=== PATIENT | female | born 1945 | race Caucasian/White ===

== ENCOUNTER 2018-07-04 18:45 | Emergency (ER) | payer SELFPAY ==
[~2018-07-04] VITALS: Ht 165.1 cm; Wt 84.4 kg
--- NOTE | 2018-07-04 20:13 | Diagnostic Imaging Report ---
Exam: 1 view of the abdomen, supine Indication: Constipation, chronic, right-sided abdominal pain Comparison: None Findings: Significant amount of retained stool predominantly of the rectosigmoid colon. No evidence of bowel obstruction. S-shaped curvature of the thoracolumbar spine. The bones are demineralized. No consolidations in the lung bases. Impression: Significant amount of retained stool predominantly of the rectosigmoid colon, likely fecal impaction. Signed by: Dr. Matilda Billingsley M.D. on 07/04/2018 8:09 PM
--- NOTE | 2018-07-04 22:49 | Diagnostic Imaging Report ---
EXAM: CT ABDOMEN AND PELVIS WITH IV CONTRAST INDICATION: Constipation for one week, right-sided abdominal pain COMPARISON: [facility] July 04, 2018 TECHNIQUE: The abdomen and pelvis were scanned using a multidetector helical scanner. Coronal and sagittal reformations were obtained. Dose modulation, iterative reconstruction, and/or weight based adjustment of the mA/kV was utilized to reduce the radiation dose to as low as reasonably achievable. Routine protocol performed. IV Contrast: 100 cc Isovue-300 Oral Contrast: None CTDIvol has been reviewed. It is below the limits set by the Radiation Protocol Committee (RPC). FINDINGS: LOWER THORAX: No consolidations LIVER: No masses BILIARY: Normal gallbladder. No ductal dilation. SPLEEN: No masses PANCREAS: No masses ADRENALS: There is a 3.7 x 2.7 heterogeneous left adrenal gland mass. KIDNEYS: No enhancing masses. Moderate right and mild left hydronephrosis. GI TRACT: Severe distention of the rectum with stool measuring up to 11 cm in transverse diameter. Retained stool throughout the colon. No bowel obstruction. The appendix cannot be identified. No evidence of appendicitis. VESSELS: Advanced atherosclerotic changes of the abdominal aorta and branches. There is a fusiform infrarenal abdominal aortic aneurysm measuring up to 4.7 cm in maximum diameter with moderate crescentic adherent thrombus. PERITONEUM/RETROPERITONEUM: No free air or fluid LYMPH NODES: No lymphadenopathy REPRODUCTIVE ORGANS: The uterus and ovaries are not visualized. BLADDER: The bladder is compressed anteriorly secondary to the distended rectum. SOFT TISSUES: Normal BONES: No suspicious bone lesions. IMPRESSION: 1. Marked distention of the rectum with stool consistent with fecal impaction. No bowel obstruction. 2. Moderate right and mild left hydronephrosis, likely secondary to distal ureteral mass effect from distended rectum. 3. There is an infrarenal abdominal aortic aneurysm measuring up to 4.7 cm. Unless patient has been instructed otherwise, for this size of an aneurysm follow-up imaging is recommended every 6 months. 4. Indeterminate 3.2 cm heterogeneous left adrenal gland mass. If this has not already been evaluated, this can be further characterized by MR or CT with and without IV contrast, adrenal mass protocol. Signed by: Dr. Matilda Billingsley M.D. on 07/04/2018 10:46 PM
[2018-07-04 23:16] VITALS: BP 143/88
== END 2018-07-04 23:32 | disposition home or self-care (01) ==
LOC: FSED 18:45
DX: R10.9 Unspecified abdominal pain (principal); K59.00 Constipation, unspecified; K56.41 Fecal impaction
CPT/HCPCS: 74018; 74177; 80053; 81003; 85025; 99284

== ENCOUNTER 2019-02-22 20:05 | Inpatient (IN) | payer MEDICARE, OTHER ==
[~2019-02-22] VITALS: Ht 165.1 cm; Wt 85.7 kg
--- OUTSIDE RECORDS SUMMARY | 2019-02-22 20:07 | XMS REPORT ---
Author [facility] Address Unknown Phone Unavailable Care Team Providers Care [employer] Name Role Phone Chaim MARTINEZ Unavailable Unavailable Payers Payer Name Policy Type Policy Number Effective Date Expiration Date Problems This patient has no known problems. Allergies, Adverse Reactions, Alerts Allergy Name Allergy Type Status Severity Reaction(s) Onset Date Inactive Date Treating Clinician Comments cortisone DA Active VT 2018-12-15 00:00:00 strawberry DA Active VT 2018-12-15 00:00:00 cortisone DA Active VT 2017-12-08 00:00:00 strawberry DA Active VT 2017-12-08 00:00:00 CUCUMBAR DA Active 2010-08-27 00:00:00 Medications This patient has no known medications. Results Test Description Test Time Test Comments Text Results Atomic Results Result Comments GLUBED 2018-12-30 07:34:00 GLUBED (test code=GLUBED) 102 mg/dL 74-106 Performed by certified autocad operator at [facility] [id number] 07:34:00* Test Item Value Reference Range Comments GLUBED (test code=GLUBED) 84 mg/dL 74-106 Performed by certified autocad operator at [facility] [id number] 07:33:00* Test Item Value Reference Range Comments GLUBED (test code=GLUBED) 131 mg/dL 74-106 Performed by certified autocad operator at [facility] [id number] 07:33:00* Test Item Value Reference Range Comments GLUBED (test code=GLUBED) 87 mg/dL 74-106 Performed by certified autocad operator at [facility] [id number] 07:33:00* Test Item Value Reference Range Comments GLUBED (test code=GLUBED) 117 mg/dL 74-106 Performed by certified autocad operator at [facility] [id number] 07:33:00* Test Item Value Reference Range Comments GLUBED (test code=GLUBED) 84 mg/dL 74-106 Performed by certified autocad operator at [facility] [id number] 07:32:00* Test Item Value Reference Range Comments GLUBED (test code=GLUBED) 158 mg/dL 74-106 Performed by certified autocad operator at [facility] [id number] 07:32:00* Test Item Value Reference Range Comments GLUBED (test code=GLUBED) 107 mg/dL 74-106 Performed by certified autocad operator at [facility] [id number] 07:32:00* Test Item Value Reference Range Comments GLUBED (test code=GLUBED) 156 mg/dL 74-106 Performed by certified autocad operator at [facility] [id number] 07:31:00* Test Item Value Reference Range Comments GLUBED (test code=GLUBED) 107 mg/dL 74-106 Performed by certified autocad operator at [facility] [id number] 07:31:00* Test Item Value Reference Range Comments GLUBED (test code=GLUBED) 81 mg/dL 74-106 Performed by certified autocad operator at [facility] [id number] 07:31:00* Test Item Value Reference Range Comments GLUBED (test code=GLUBED) 130 mg/dL 74-106 Performed by certified autocad operator at [facility] [id number] 07:31:00* Test Item Value Reference Range Comments GLUBED (test code=GLUBED) 128 mg/dL 74-106 [facility] [id number] 07:30:00* Test Item Value Reference Range Comments GLUBED (test code=GLUBED) 79 mg/dL 74-106 [facility] [id number] 09:35:00* Test Item Value Reference Range Comments GLUBED (test code=GLUBED) 305 mg/dL 74-106 Performed by certified autocad operator at [facility] [id number] 09:34:00* Test Item Value Reference Range Comments GLUBED (test code=GLUBED) 78 mg/dL 74-106 Performed by certified autocad operator at [facility] [id number] 09:34:00* Test Item Value Reference Range Comments GLUBED (test code=GLUBED) 147 mg/dL 74-106 Performed by certified autocad operator at [facility] [id number] 09:34:00* Test Item Value Reference Range Comments GLUBED (test code=GLUBED) 74 mg/dL 74-106 Performed by certified autocad operator at [facility] BASIC METABOLIC [id number] 06:36:00* Test Item Value Reference Range Comments SODIUM (test code=NA) 143 mmol/L 136-145 POTASSIUM (test code=K) 3.9 mmol/L 3.5-5.1 CHLORIDE (test code=CL) 112.0 mmol/L 98-107 CARBON DIOXIDE (test code=CO2) 23.0 mmol/L 21-32 ANION GAP (test code=GAP) 11.9 10-20 GLUCOSE (test code=GLU) 95 mg/dL 74-106 BLOOD UREA NITROGEN (test code=BUN) 14 mg/dL 7-18 GLOMERULAR FILTRATION RATE (test code=GFR) > 60 mL/min >=60 Estimated GFR by using Modified MDRD formula.Chronic kidney disease is defined as either kidney damageor GFR <60 mL/min/1.73 m2 for >3 months. CREATININE (test code=CREAT) 0.50 mg/dL 0.55-1.02 Note change in reference range due to change in reagent. BUN/CREATININE RATIO (test code=BUN/CREA) 27.8 10-20 CALCIUM (test code=CA) 8.3 mg/dL 8.5-10.1 BASIC METABOLIC [id number] 06:32:00* Test Item Value Reference Range Comments SODIUM (test code=NA) 143 mmol/L 136-145 POTASSIUM (test code=K) 3.9 mmol/L 3.5-5.1 CHLORIDE (test code=CL) 112.0 mmol/L 98-107 CARBON DIOXIDE (test code=CO2) mmol/L 21-32 ANION GAP (test code=GAP) 10-20 GLUCOSE (test code=GLU) mg/dL 74-106 BLOOD UREA NITROGEN (test code=BUN) mg/dL 7-18 GLOMERULAR FILTRATION RATE (test code=GFR) mL/min >=60 CREATININE (test code=CREAT) mg/dL 0.55-1.02 BUN/CREATININE RATIO (test code=BUN/CREA) 10-20 CALCIUM (test code=CA) mg/dL 8.5-10.1 CBC W/O [id number] 06:10:00* Test Item Value Reference Range Comments WHITE BLOOD CELL (test code=WBC) 9.5 K/mm3 4.5-12.5 RED BLOOD CELL (test code=RBC) 4.08 mill/mm3 3.7-5.2 HEMOGLOBIN (test code=HGB) 11.6 gram/dL 11.5-15.5 HEMATOCRIT (test code=HCT) 37.9 % 36.0-46.0 MEAN CELL VOLUME (test code=MCV) 92.9 fL 80-98 MEAN CELL HGB (test code=MCH) 28.4 picogram 27.0-33.0 MEAN CELL HGB CONCETRATION (test code=MCHC) 30.6 gram/dL 33.0-36.0 RED CELL DISTRIBUTION WIDTH (test code=RDW) 14.4 % 11.6-16.2 PLATELET COUNT (test code=PLT) 230 K/mm3 150-450 MEAN PLATELET VOLUME (test code=MPV) 10.1 fL 6.7-11.0 CBC W/O [id number] 06:08:00* Test Item Value Reference Range Comments WHITE BLOOD CELL (test code=WBC) K/mm3 4.5-12.5 RED BLOOD CELL (test code=RBC) mill/mm3 3.7-5.2 HEMOGLOBIN (test code=HGB) 11.6 gram/dL 11.5-15.5 HEMATOCRIT (test code=HCT) 37.9 % 36.0-46.0 MEAN CELL VOLUME (test code=MCV) fL 80-98 MEAN CELL HGB (test code=MCH) picogram 27.0-33.0 MEAN CELL HGB CONCETRATION (test code=MCHC) gram/dL 33.0-36.0 RED CELL DISTRIBUTION WIDTH (test code=RDW) % 11.6-16.2 PLATELET COUNT (test code=PLT) K/mm3 150-450 MEAN PLATELET VOLUME (test code=MPV) fL 6.7-11.0 [id number] 20:39:00* Test Item Value Reference Range Comments GLUBED (test code=GLUBED) 136 mg/dL 74-106 Performed by certified autocad operator at [facility] [id number] 07:34:00* Test Item Value Reference Range Comments GLUBED (test code=GLUBED) 80 mg/dL 74-106 Performed by certified autocad operator at [facility] [id number] 21:32:00* Test Item Value Reference Range Comments GLUBED (test code=GLUBED) 134 mg/dL 74-106 Performed by certified autocad operator at [facility] [id number] 08:40:00* Test Item Value Reference Range Comments GLUBED (test code=GLUBED) 90 mg/dL 74-106 Performed by certified autocad operator at [facility] BASIC METABOLIC [id number] 07:13:00* Test Item Value Reference Range Comments SODIUM (test code=NA) 145 mmol/L 136-145 POTASSIUM (test code=K) 3.8 mmol/L 3.5-5.1 CHLORIDE (test code=CL) 112.0 mmol/L 98-107 CARBON DIOXIDE (test code=CO2) 25.0 mmol/L 21-32 ANION GAP (test code=GAP) 11.8 10-20 GLUCOSE (test code=GLU) 84 mg/dL 74-106 BLOOD UREA NITROGEN (test code=BUN) 15 mg/dL 7-18 GLOMERULAR FILTRATION RATE (test code=GFR) > 60 mL/min >=60 Estimated GFR by using Modified MDRD formula.Chronic kidney disease is defined as either kidney damageor GFR <60 mL/min/1.73 m2 for >3 months. CREATININE (test code=CREAT) 0.50 mg/dL 0.55-1.02 Note change in reference range due to change in reagent. BUN/CREATININE RATIO (test code=BUN/CREA) 29.9 10-20 CALCIUM (test code=CA) 9.1 mg/dL 8.5-10.1 CBC W/AUTO [id number] 06:50:00* Test Item Value Reference Range Comments WHITE BLOOD CELL (test code=WBC) 9.6 K/mm3 4.5-12.5 RED BLOOD CELL (test code=RBC) 4.36 mill/mm3 3.7-5.2 HEMOGLOBIN (test code=HGB) 12.3 gram/dL 11.5-15.5 HEMATOCRIT (test code=HCT) 39.3 % 36.0-46.0 MEAN CELL VOLUME (test code=MCV) 90.1 fL 80-98 MEAN CELL HGB (test code=MCH) 28.2 picogram 27.0-33.0 MEAN CELL HGB CONCETRATION (test code=MCHC) 31.3 gram/dL 33.0-36.0 RED CELL DISTRIBUTION WIDTH (test code=RDW) 14.3 % 11.6-16.2 RED CELL DISTRIBUTION WIDTH SD (test code=RDW-SD) 46.7 fL 37.0-51.0 PLATELET COUNT (test code=PLT) 261 K/mm3 150-450 MEAN PLATELET VOLUME (test code=MPV) 9.9 fL 6.7-11.0 NEUTROPHIL % (test code=NT%) 65.9 % 39.0-69.0 IMMATURE GRANULOCYTE % (test code=IG%) 0.4 % 0.0-5.0 LYMPHOCYTE % (test code=LY%) 23.7 % 25.0-55.0 MONOCYTE % (test code=MO%) 4.9 % 0.0-10.0 EOSINOPHIL % (test code=EO%) 4.9 % 0.0-5.0 BASOPHIL % (test code=BA%) 0.2 % 0.0-1.0 NUCLEATED RBC % (test code=NRBC%) 0.0 % 0-0 NEUTROPHIL # (test code=NT#) 6.32 K/mm3 1.8-7.7 IMMATURE GRANULOCYTE # (test code=IG#) 0.04 x10 3/uL 0-0.03 LYMPHOCYTE # (test code=LY#) 2.27 K/mm3 1.0-5.0 MONOCYTE # (test code=MO#) 0.47 K/mm3 0-0.8 EOSINOPHIL # (test code=EO#) 0.47 K/mm3 0.0-0.5 BASOPHIL # (test code=BA#) 0.02 K/mm3 0.0-0.2 NUCLEATED RBC # (test code=NRBC#) 0.00 K/mm3 0.0-0.1 MANUAL DIFF REQUIRED (test code=MDIFF) NO [id number] 08:58:00* Test Item Value Reference Range Comments GLUBED (test code=GLUBED) 93 mg/dL 74-106 Performed by certified autocad operator at [facility] [id number] 20:53:00* Test Item Value Reference Range Comments GLUBED (test code=GLUBED) 151 mg/dL 74-106 Performed by certified autocad operator at [facility] [id number] 16:20:00* Test Item Value Reference Range Comments GLUBED (test code=GLUBED) 90 mg/dL 74-106 Performed by certified autocad operator at [facility] [id number] 16:48:00* Test Item Value Reference Range Comments GLUBED (test code=GLUBED) 98 mg/dL 74-106 [facility] [id number] 20:47:00* Test Item Value Reference Range Comments GLUBED (test code=GLUBED) 160 mg/dL 74-106 Performed by certified autocad operator at [facility] SED [id number] 19:24:00* Test Item Value Reference Range Comments SED RATE (test code=SEDW) 41 mm/hr 0-30 SED [id number] 19:23:00* Test Item Value Reference Range Comments SED RATE (test code=SEDW) 41 mm/hr 0-30 PROCALCITONIN (PCT)2018-12-15 15:52:00* Test Item Value Reference Range Comments PROCALCITONIN (PCT) (test code=PROCAL) < 0.05 ng/ml Concentration Interpretation (ng/mL) <0.51 Sepsis is not likely. Local bacterial infection is possible. (LOW RISK for progression to Sepsis) 0.51 - 2.00 Sepsis is possible, but other conditions are known to elevate PCT as well. (MODERATE RISK for progression to Sepsis) > 2.00 Sepsis is likely, unless other causes are known. (HIGH RISK for progression to Severe Sepsis or Septic Shock) 10.00 High likelihood of Severe Sepsis or Septic or higher Shock. *Increased PCT levels may not always be related to systemic bacterial infection.*Low PCT levels do not automatically exclude the presence of bacterial infection.*All results should be interpreted taking into account the patients history. BASIC METABOLIC [id number] 15:26:00* Test Item Value Reference Range Comments SODIUM (test code=NA) 140 mmol/L 136-145 POTASSIUM (test code=K) 3.9 mmol/L 3.5-5.1 CHLORIDE (test code=CL) 106.0 mmol/L 98-107 CARBON DIOXIDE (test code=CO2) 25.0 mmol/L 21-32 ANION GAP (test code=GAP) 12.9 10-20 GLUCOSE (test code=GLU) 175 mg/dL 74-106 BLOOD UREA NITROGEN (test code=BUN) 24 mg/dL 7-18 GLOMERULAR FILTRATION RATE (test code=GFR) > 60 mL/min >=60 Estimated GFR by using Modified MDRD formula.Chronic kidney disease is defined as either kidney damageor GFR <60 mL/min/1.73 m2 for >3 months. CREATININE (test code=CREAT) 0.70 mg/dL 0.55-1.02 Note change in reference range due to change in reagent. BUN/CREATININE RATIO (test code=BUN/CREA) 36.7 10-20 CALCIUM (test code=CA) 9.3 mg/dL 8.5-10.1 LACTIC [id number] 15:26:00* Test Item Value Reference Range Comments LACTIC ACID (test code=LACT) 1.2 mmol/L 0.4-1.9 BASIC METABOLIC [id number] 15:21:00* Test Item Value Reference Range Comments SODIUM (test code=NA) 140 mmol/L 136-145 POTASSIUM (test code=K) 3.9 mmol/L 3.5-5.1 CHLORIDE (test code=CL) 106.0 mmol/L 98-107 CARBON DIOXIDE (test code=CO2) mmol/L 21-32 ANION GAP (test code=GAP) 10-20 GLUCOSE (test code=GLU) mg/dL 74-106 BLOOD UREA NITROGEN (test code=BUN) mg/dL 7-18 GLOMERULAR FILTRATION RATE (test code=GFR) mL/min >=60 CREATININE (test code=CREAT) mg/dL 0.55-1.02 BUN/CREATININE RATIO (test code=BUN/CREA) 10-20 CALCIUM (test code=CA) mg/dL 8.5-10.1 CBC W/AUTO [id number] 15:03:00* Test Item Value Reference Range Comments WHITE BLOOD CELL (test code=WBC) K/mm3 4.5-12.5 RED BLOOD CELL (test code=RBC) mill/mm3 3.7-5.2 HEMOGLOBIN (test code=HGB) 13.3 gram/dL 11.5-15.5 HEMATOCRIT (test code=HCT) 42.4 % 36.0-46.0 MEAN CELL VOLUME (test code=MCV) fL 80-98 MEAN CELL HGB (test code=MCH) picogram 27.0-33.0 MEAN CELL HGB CONCETRATION (test code=MCHC) gram/dL 33.0-36.0 RED CELL DISTRIBUTION WIDTH (test code=RDW) % 11.6-16.2 RED CELL DISTRIBUTION WIDTH SD (test code=RDW-SD) fL 37.0-51.0 PLATELET COUNT (test code=PLT) K/mm3 150-450 MEAN PLATELET VOLUME (test code=MPV) fL 6.7-11.0 NEUTROPHIL % (test code=NT%) % 39.0-69.0 IMMATURE GRANULOCYTE % (test code=IG%) % 0.0-5.0 LYMPHOCYTE % (test code=LY%) % 25.0-55.0 MONOCYTE % (test code=MO%) % 0.0-10.0 EOSINOPHIL % (test code=EO%) % 0.0-5.0 BASOPHIL % (test code=BA%) % 0.0-1.0 NEUTROPHIL # (test code=NT#) K/mm3 1.8-7.7 LYMPHOCYTE # (test code=LY#) K/mm3 1.0-5.0 MONOCYTE # (test code=MO#) K/mm3 0-0.8 EOSINOPHIL # (test code=EO#) K/mm3 0.0-0.5 BASOPHIL # (test code=BA#) K/mm3 0.0-0.2 CBC W/AUTO [id number] 15:03:00* Test Item Value Reference Range Comments WHITE BLOOD CELL (test code=WBC) 11.5 K/mm3 4.5-12.5 RED BLOOD CELL (test code=RBC) 4.77 mill/mm3 3.7-5.2 HEMOGLOBIN (test code=HGB) 13.3 gram/dL 11.5-15.5 HEMATOCRIT (test code=HCT) 42.4 % 36.0-46.0 MEAN CELL VOLUME (test code=MCV) 88.9 fL 80-98 MEAN CELL HGB (test code=MCH) 27.9 picogram 27.0-33.0 MEAN CELL HGB CONCETRATION (test code=MCHC) 31.4 gram/dL 33.0-36.0 RED CELL DISTRIBUTION WIDTH (test code=RDW) 13.6 % 11.6-16.2 RED CELL DISTRIBUTION WIDTH SD (test code=RDW-SD) 44.4 fL 37.0-51.0 PLATELET COUNT (test code=PLT) 263 K/mm3 150-450 MEAN PLATELET VOLUME (test code=MPV) 10.1 fL 6.7-11.0 NEUTROPHIL % (test code=NT%) 79.8 % 39.0-69.0 IMMATURE GRANULOCYTE % (test code=IG%) 1.7 % 0.0-5.0 LYMPHOCYTE % (test code=LY%) 13.8 % 25.0-55.0 MONOCYTE % (test code=MO%) 4.5 % 0.0-10.0 EOSINOPHIL % (test code=EO%) 0.1 % 0.0-5.0 BASOPHIL % (test code=BA%) 0.1 % 0.0-1.0 NUCLEATED RBC % (test code=NRBC%) 0.0 % 0-0 NEUTROPHIL # (test code=NT#) 9.19 K/mm3 1.8-7.7 IMMATURE GRANULOCYTE # (test code=IG#) 0.19 x10 3/uL 0-0.03 LYMPHOCYTE # (test code=LY#) 1.59 K/mm3 1.0-5.0 MONOCYTE # (test code=MO#) 0.52 K/mm3 0-0.8 EOSINOPHIL # (test code=EO#) 0.01 K/mm3 0.0-0.5 BASOPHIL # (test code=BA#) 0.01 K/mm3 0.0-0.2 NUCLEATED RBC # (test code=NRBC#) 0.00 K/mm3 0.0-0.1 - XR ANKLE 3 + V [id number] 14:37:00 FAX: Drew Elizabeth [phone] [place]: St: REG FAX: RITIKA STEPHENS MD Name: LANCE STOUT [facility] : 1945 Age/S: 73/F [address] [facility] Unit #: [id number] Loc: [place] [address] Phys: RITIKA STEPHENS MD Acct: [id number] Dis Date: Status: REG ER PHONE #: [phone] Exam Date: 12/15/2018 1419 FAX #: [phone] Reason: infection, prior hardware EXAMS: CPT CODE: [id number] XR ANKLE 3 + [place] [address] REASON FOR EXAM: infection, prior hardware EXAM ORDER DATE: 12/15/2018 1:54 PM Ordering M.DYunior: RITIKA STEPHENS MD PROCEDURE: - XR ANKLE 3 + V LT FI NDINGS: 3 views of the left ankle were obtained. The osseous structures ar e severely osteopenic. There is a fixation plate and orthopedic screws not ed within the left ankle consistent with status post ORIF. The joint space s are maintained. No evidence of fracture. The syndesmosis is intact. IMPRESSION: Disuse osteopenia, status post ORIF of the left ankle. No obvious evidence of osteomyelitis at 1437 Reported and sign ed by: Ketan Garcia M.D. CC: Drew Pop; RITIKA STEPHENS MD Technologist: OSBALDO EUGENE(R) Trnscrd Date/Time/By: 12/15/2018 (7373) : By: CinthiaVTL Orig Print D/T: S: 12/15/2018 (8734) PAGE [address] ABD/PEL WITH CONTRAST-HOPD 2018-07-04 22:32:00 [place] [address] Patient Name: LANCE STOUT MR #: [id number] : 1945 Age/Sex: 72/F Req #: [id number] [facility] Physician: Ordered by: IHSAN MARTINEZ MD Report #: [id number] Location: [facility] Room/Bed: Procedure: [id number] HOPD/CT ABD/PEL WITH CONTRAST- HOPD Exam Date: Exam Time: REPORT STATUS: Si gned EXAM: CT ABDOMEN AND PELVIS WITH IV CONTRAST INDICATION: Constipation for one week, right-sided abdominal pain COMPARISON: [facility] July 04, 2018 TECHNIQUE: The abdomen and pelvis were scanned using a multidetector helical scanner. Coronal and sagittal reformations were obtained. Dose modulation, ite rative reconstruction, and/or weight based adjustment of the mA/kV was utilize d to reduce the radiation dose to as low as reasonably achievable. Routine pro tocol performed. IV Contrast: 100 cc Isovue-300 Oral Contrast: None CTDIvo l has been reviewed. It is below the limits set by the Radiation Protocol Comm ittee ([facility]). FINDINGS: LOWER THORAX: No consolidations LIVER: No mas ses BILIARY: Normal gallbladder. No ductal dilation. SPLEEN: No masses PANCREAS: No masses ADRENALS: There is a 3.7 x 2.7 heterogeneous left adre nal gland mass. KIDNEYS: No enhancing masses. Moderate right and mild left hyd ronephrosis. GI TRACT: Severe distention of the rectum with stool measuring up to 11 cm in transverse diameter. Retained stool throughout the colon. No b owel obstruction. The appendix cannot be identified. No evidence of appendicit is. VESSELS: Advanced atherosclerotic changes of the abdominal aorta a nd branches. There is a fusiform infrarenal abdominal aortic aneurysm measurin g up to 4.7 cm in maximum diameter with moderate crescentic adherent thrombus. PERITONEUM/RETROPERITONEUM: No free air or fluid LYMPH NODES: No lymphad enopathy REPRODUCTIVE ORGANS: The uterus and ovaries are not visualized. BLADDER: The bladder is compressed anteriorly secondary to the distended rectu m. SOFT TISSUES: Normal BONES: No suspicious bone lesions. IMPRESSIO N: 1. Marked distention of the rectum with stool consistent with fecal impacti on. No bowel obstruction. 2. Moderate right and mild left hydronephrosis, likely secondary to distal ureteral mass effect from distended rectum. 3. There is an infrarenal abdominal aortic aneurysm measuring up to 4.7 cm. Unl ess patient has been instructed otherwise, for this size of an aneurysm follow -up imaging is recommended every 6 months. 4. Indeterminate 3.2 cm heteroge neous left adrenal gland mass. If this has not already been evaluated, this ca n be further characterized by MR or CT with and without IV contrast, adrenal m ass protocol. Signed by: Dr. Cecy Billingsley M.D. on 07/04/2018 10:46 PM Dictated By: CECY BILLINGSLEY MD 45 Transcribed By: JEREMIAH on 07/04/182245 COPY TO: IHSAN WHITE MD ABDOMEN 1 VIEW(KUB)-[id number] 20:07:00 [place] [id number] Patient Name: LANCE STOUT MR #: [id number] : 1945 Age/Sex: 72/F Req #: [id number] Adm Physician: Ordered by: NICKY BOGGS MD Report #: [id number] Location: [facility] Room/Bed: Procedure: [id number] HOPD/ABDOMEN 1 VIEW(KUB)-HOPD Exam Date: 07/04/18 Exam Time: 1933 REPORT STAT US: Signed Exam: 1 view of the abdomen, supine Indication: Constipation, ch ronic, right-sided abdominal pain Comparison: None Findings: Significan t amount of retained stool predominantly of the rectosigmoid colon. No evidenc e of bowel obstruction. S-shaped curvature of the thoracolumbar spine. The bon es are demineralized. No consolidations in the lung bases. Impression: Si gnificant amount of retained stool predominantly of the rectosigmoid colon, li ann fecal impaction. Signed by: Dr. Cecy Billingsley M.D. on 07/04/2018 8: 09 PM Dictated By: CECY BILLINGSLEY MD 08 Transcribed By: JEREMIAH on 07/04/182008 COPY TO: NICKY BOGGS MD
--- NOTE | 2019-02-22 22:26 | Diagnostic Imaging Report ---
EXAMINATION: Head CT HISTORY: Confusion COMPARISON: None. TECHNIQUE: Multidetector axial images were obtained without contrast from the foramen magnum to the vertex . The images were reconstructed using brain and bone algorithms. Thin section brain images were reformatted into coronal and sagittal planes. Image quality: Motion/streaking artifact limits the evaluation of the skull base and posterior cranial fossa. Also the patient moved at about half of the study. Dose modulation, iterative reconstruction, and/or weight based adjustment of the mA/kV was utilized to reduce the radiation dose to as low as reasonably achievable. FINDINGS: Parenchyma: 1. Extensive cortical and subcortical encephalomalacia in the right superior frontoparietal lobes, insula and superior temporal lobes, likely sequela from remote infarction in the right MCA distribution. Mild associated ipsilateral Wallerian degeneration. 2. Chronic cortical infarct is also seen involving the left inferior occipital lobe/lingula gyrus , along the left MERCHANDISE ADJUSTMENT CLERK distribution. 3. Age-indeterminate likely chronic lacunar infarct in the head of the left caudate nucleus and right thalamocapsular region as well as possibly in the juliane. 4. Few scattered pulmonary hypodensities, most likely nonspecific chronic microvascular ischemic changes. 5. No mass or hemorrhage. No CT evidence of acute territorial vascular insult. Extra-axial spaces:No abnormal density. No extra-axial fluid collections Brain volume: Normal for age. Ventricles: No hydrocephalus or displacement. Arteries: No density suggestive of thrombus. Dural sinuses: No abnormal density. Extra-axial spaces: No abnormal density. Foramen magnum: No mass, Chiari malformation, or basilar invagination. Partially visualized prominent degenerative changes in the upper cervical spine Sella: No obvious mass. Paranasal/mastoid sinuses: Imaged portions unremarkable. Skull/Scalp: No lytic or blastic lesions. No fractures. IMPRESSION: 1. No acute intracranial hemorrhage, hydrocephalus or cortical infarct. 2. Chronic infarct along the right MCA and left MERCHANDISE ADJUSTMENT CLERK vascular territories. 3. Mild chronic microvascular ischemic changes and small chronic lacunar infarcts as detailed above. Signed by: Dr. Kristen Cabrera M.D. on 02/22/2019 10:23 PM
[2019-02-23] VITALS (7 sets, daily range): BP systolic 101–181; BP diastolic 58–101
[2019-02-23 00:03] LABS: BASOPHILS % 0.1 % (0.0-1.0); EOSINOPHILS # (AUTO) 0.2 (0.0-0.4); EOSINOPHILS % 1.2 % (0.0-6.0); HEMATOCRIT 41.3 % (34.2-44.1); HEMOGLOBIN 12.9 g/dL (12.0-16.0); LYMPHOCYTES # (AUTO) 1.8 (1.0-3.2); LYMPHOCYTES % 13.2 % (18.0-39.1); MEAN CORPUSCULAR HEMOGLOBIN 28.2 pg (28-32); MEAN CORPUSCULAR HGB CONC 31.2 g/dL (31-35); MEAN CORPUSCULAR VOLUME 90.4 fL (81-99); MONOCYTES # (AUTO) 1.1 (0.2-0.8); MONOCYTES % 7.7 % (4.4-11.3); NEUTROPHILS # (AUTO) 10.5 (2.1-6.9); NEUTROPHILS % 77.3 % (38.7-80.0); PLATELET COUNT 283 x10e3/uL (140-360); RED BLOOD COUNT 4.57 x10e6/uL (3.6-5.1); RED CELL DISTRIBUTION WIDTH 14.3 % (11.7-14.4)
[2019-02-23 00:09] LABS: CLARITY,URINE CLOUDY (CLEAR); COLOR,URINE AMBER (YELLOW); LEUKOCYTE ESTERASE ,URINE 2+ (NEGATIVE); NITRITE,URINE NEGATIVE (NEGATIVE); PROTEIN,URINE DIPSTICK 2+ (NEGATIVE)
[2019-02-23 00:10] LABS: BILIRUBIN,URINE NEGATIVE (NEGATIVE); KETONES,URINE TRACE (NEGATIVE); URINE UROBILINOGEN 1 mg/dL (0.2 - 1)
[2019-02-23 00:23] LABS: ALANINE AMINOTRANSFERASE 13 IU/L (0-55); ALBUMIN 3.2 g/dL (3.5-5.0); ALBUMIN/GLOBULIN RATIO 0.8 (0.8-2.0); ALKALINE PHOSPHATASE 56 IU/L (40-150); ANION GAP 18.3 mmol/L (8-16); BLOOD UREA NITROGEN 24 mg/dL (7-26); BUN/CREATININE RATIO 32 (6-25); CALCIUM 9.6 mg/dL (8.4-10.2); CARBON DIOXIDE 21 mmol/L (22-29); CHLORIDE 111 mmol/L (98-107); CREATINE KINASE 63 IU/L (29-168); CREATININE, SERUM 0.76 mg/dL (0.57-1.11); EST GLOMERULAR FILTRATION RATE > 60 ML/MIN (60-); GLUCOSE 84 mg/dL (74-118); LIPASE 9 U/L (8-78); POTASSIUM 4.3 mmol/L (3.5-5.1); SODIUM 146 mmol/L (136-145)
[2019-02-23 00:33] LABS: BACTERIA,URINE MANY /HPF; EPITHELIAL CELLS,URINE FEW /LPF; WBC,URINE (MAN) 21-50 /HPF (0-5)
[2019-02-23] MEDS ORDERED: SODIUM CHLORIDE 0.9% 1000ML 1,000 ML IV SCH ×2 (01:00→01:05)
[2019-02-23] MEDS ORDERED: CEFTRIAXONE SOD 1 GM/NS 50 ML 50 ML IV ONE (01:00)
--- NOTE | 2019-02-23 03:18 | Diagnostic Imaging Report ---
EXAMINATION: CHEST SINGLE (PORTABLE) INDICATION: Altered mental status. COMPARISON: None FINDINGS: TUBES and LINES: None. LUNGS: Lungs are not well inflated. Bibasilar subsegmental atelectasis. Prominence of the pulmonary vasculature bilaterally may be part related to technique. Bibasilar subsegmental atelectasis. There is no evidence of pneumonia or pulmonary edema. PLEURA: No pleural effusion or pneumothorax. HEART AND MEDIASTINUM: The cardiomediastinal silhouette is magnified by technique. Tortuous calcified thoracic aorta. BONES AND SOFT TISSUES: No acute osseous lesion. UPPER ABDOMEN: No free air under the diaphragm. IMPRESSION: Low lung volume with bibasilar subsegmental atelectasis. Signed by: Dr. Kaleb Castro M.D. on 02/23/2019 3:15 AM
--- NOTE | 2019-02-23 05:03 | NUR ---
Patient arrived to floor via stretcher. Pt AAOx1 and pleasantly confused. SR up x2 and bed alarm on. Patient instructed to stay in bed.
[2019-02-23] MEDS ORDERED: ATORVASTATIN CA20 MG PO (07:09)
[2019-02-23] MEDS ORDERED: CLOPIDOGREL75 MG PO (07:10)
[2019-02-23] MEDS ORDERED: LISINOPRIL10 MG PO (07:12)
[2019-02-23] MEDS ORDERED: MELATONIN3 M1 PO (07:14)
[2019-02-23] MEDS ORDERED: METOPROLOL SUCC25 MG (07:16)
[2019-02-23] MEDS ORDERED: PEPCID20 MG (07:17)
[2019-02-23] MEDS ORDERED: TRAMADOL HCL100 MG (07:21)
[2019-02-23] MEDS ORDERED: ONDANSETRON HCL INJ 2MG/ML 2ML 2 MG/ML VIAL IV PRN (07:30)
[2019-02-23] MEDS ORDERED: ACETAMINOPHEN 325 MG TAB PO PRN (07:30)
[2019-02-23 08:44] LABS: BASOPHILS % 0.3 % (0.0-1.0); EOSINOPHILS # (AUTO) 0.1 (0.0-0.4); EOSINOPHILS % 0.7 % (0.0-6.0); HEMATOCRIT 39.5 % (34.2-44.1); HEMOGLOBIN 12.5 g/dL (12.0-16.0); LYMPHOCYTES # (AUTO) 1.3 (1.0-3.2); LYMPHOCYTES % 11.1 % (18.0-39.1); MEAN CORPUSCULAR HGB CONC 31.6 g/dL (31-35); MEAN CORPUSCULAR VOLUME 88.6 fL (81-99); MONOCYTES # (AUTO) 0.6 (0.2-0.8); MONOCYTES % 5.3 % (4.4-11.3); NEUTROPHILS # (AUTO) 9.9 (2.1-6.9); NEUTROPHILS % 81.9 % (38.7-80.0); PLATELET COUNT 279 x10e3/uL (140-360); RED BLOOD COUNT 4.46 x10e6/uL (3.6-5.1); RED CELL DISTRIBUTION WIDTH 14.1 % (11.7-14.4)
[2019-02-23] MEDS ORDERED: METOPROLOL SUCCINATE 25 MG TAB XL PO SCH (09:00)
[2019-02-23] MEDS ORDERED: LISINOPRIL 10 MG TAB PO SCH (09:00)
[2019-02-23 09:11] LABS: ANION GAP 15.2 mmol/L (8-16); BLOOD UREA NITROGEN 23 mg/dL (7-26); BUN/CREATININE RATIO 33 (6-25); CALCIUM 9.4 mg/dL (8.4-10.2); CARBON DIOXIDE 22 mmol/L (22-29); CHLORIDE 110 mmol/L (98-107); CHOL/HDL RATIO 3.1 (3.0-3.6); CHOLESTEROL 113 MD/DL (0-199); CREATININE, SERUM 0.69 mg/dL (0.57-1.11); EST GLOMERULAR FILTRATION RATE > 60 ML/MIN (60-); GLUCOSE 97 mg/dL (74-118); HDL CHOLESTEROL 37 MG/DL (40-60); LDL CHOLESTEROL 55 MG/DL (60-130); MAGNESIUM 1.8 MG/DL (1.3-2.1); POTASSIUM 3.2 mmol/L (3.5-5.1); SODIUM 144 mmol/L (136-145); TRIGLYCERIDES 106 MG/DL (0-149)
[2019-02-23 09:35] LABS: FREE T4 (FREE THYROXINE) 1.49 ng/dL (0.9-1.8)
[2019-02-23] MEDS: DEXTROSE 5%/0.45% SOD CHL 1,000 ML IV SCH (10:05)
[2019-02-23] MEDS: FAMOTIDINE 20 MG TAB PO SCH ×2 (10:05→17:06)
[2019-02-23] MEDS: LISINOPRIL 20 MG TAB PO SCH (10:06)
[2019-02-23 10:08] LABS: CLARITY,URINE CLOUDY (CLEAR); COLOR,URINE YELLOW (YELLOW); LEUKOCYTE ESTERASE ,URINE 2+ (NEGATIVE); NITRITE,URINE POSITIVE (NEGATIVE)
[2019-02-23 10:09] LABS: KETONES,URINE 1+ (NEGATIVE); PROTEIN,URINE DIPSTICK 2+ (NEGATIVE); URINE UROBILINOGEN 1 mg/dL (0.2 - 1)
[2019-02-23 10:10] LABS: BILIRUBIN,URINE NEGATIVE (NEGATIVE)
[2019-02-23 10:11] LABS: B-TYPE NATRIURETIC PEPTIDE2 240.8 pg/mL (0-100)
[2019-02-23 10:17] LABS: BACTERIA,URINE MANY /HPF; EPITHELIAL CELLS,URINE FEW /LPF; RBC,URINE 0-5 /HPF (0-5); WBC,URINE (MAN) >50 /HPF (0-5)
--- NOTE | 2019-02-23 10:49 | NUR ---
SOCIAL WORK INITIAL ASSESSMENT Equipment Maint Tech to bedside to discuss plan of care with patient/family. CM/SW role and care transitions discussed. Anticipated discharge plan discussed along with duration of care. CM/SW discussed patients right to make decisions in care. CM/SW work hours given. Patient lives: IN OWN HOME BUT CURRENTLY BEING SKILLED AT [facility] Admit/Transfer: VIA ED POA/Emergency contact: GRANDDALIZABETH DACOSTA [phone] Current/Previous Home Health: NONE PCP/Follow-up Care: BOA Current/Previous DME: [employer] Other Services: SNF Employment Status: RETIRED Areas of Concerns: RETURN TO SNF Referral Needs: RETURN TO SNF Education Needs: NA IMM/HODGSON given and signed (if applicable): UPON ADMISSION Goal for discharge: RETURN TO SNF CM/SW left business card at the bedside with contact information. Name and number was also written on the patients whiteboard. Patient verbalized understanding of discussion. CM will follow-up with ongoing discharge and transition of care needs.
[2019-02-23] MEDS: HYDRALAZINE HCL 20 MG/ML VIAL IV PRN (10:52)
[2019-02-23] MEDS ORDERED: linzess PO (12:12)
--- NOTE | 2019-02-23 12:25 | NUR ---
WOUND CARE CONSULTATION - INITIAL EVALUATION Patient admitted from [facility] to ER for s/p fall , dysuria, constipation. HX: HTN, Insomnia, CVA with Left Sided Weakness. WC Consulted for Sacral Stage II Pressure Ulcer Evaluation. LABS: WBC12.09 HGB12.5 HCT39.5 NEUT%80.9 ALB3.2 GLU97 PATIENT VISIT: Patient pleasantly confused in bed. Family member at bedside. Recent history of LLE Surgery at ankle for OM and hardware revision by white spooler. LLE Lateral Ankle with steri-strips in place. no redness / swelling noted. Area appears stable. Open To Air. Sacral intact. no pressure ulcers. Right Gluteal - mild erythema with 100% epithelialization. Area healing and open to air. No drainage noted. Left Breast fold- reddened blanchable rash present with irregular edges with clusters consistent with yeast. Perineal area reddened blanchable rash with irregular edges, clustered consistent with yeast. Bilateral feet no pressure ulcers noted Left Sided Weakness. Visco mattress in place. Yao Score 14 IMPRESSION: 1. Right Gluteal -Healing Stage II Pressure Ulcer, Present On Admission. 2. Perineal and Left Breast Fold - Dermatologic Rash- Yeast 3. LLE Lateral - Surgical Incision - Steri Strips in place - Stable & open To Air. RECOMMENDATION: 1. Right Gluteal -Healing Stage II PU Present On Admission - Cleanse area with Mild Soap and Water then pat dry thoroughly. - Apply Redford Cream and Cover with Allevyn Foam Sacrum Dressing Daily & PRN Soiling 2. Perineal and Left Breast Fold - Dermatologic Rash- Yeast - Wash area with mild soap and water then pat dry thoroughly - Apply Nystatin Cream and Cover with Allevyn Foam dressing Daily. 3. Alternating Pressure Air Mattress and set to patient current weight 4. Bilateral Heel Protectors/ Offload heels with pillows while in bed. 5. Turn and reposition patient q2h using wall clock turning schedule protocol. 6. HOB elevated to 30 degrees or less as tolerated while in bed. Thank you for consulting with Wound Care. Addendum: 02/23/19 at 1240 by Melchor Zamorano RN Amended: Links added. Addendum: 02/23/19 at 1245 by Melchor Zamorano RN RECOMMENDATION UPTATED: to Perineal and Left Breast Fold - Dermatologic Rash- Yeast - Wash area with mild soap and water then pat dry thoroughly - Apply Nystatin Cream q12h. ( NO FOAM DRESSINGS PLEASE )
--- NOTE | 2019-02-23 13:32 | Diagnostic Imaging Report ---
History: AMS Comparison studies: CT head 02/22/2019 Technique: Sagittal T2; axial DWI, FLAIR, MPGR, T1, Coronal FLAIR. Intravenous contrast: None Findings: Scalp: Normal in signal . No masses . Bone marrow: Normal in signal intensity. Extra-axial: No masses, no fluid collections. Brain sulci: Appropriate for age. Ventricles: Normal in size . No hydrocephalus . Parenchyma: Cortical-based T2/flair hyperintensity and volume loss at the right insula, right inferior frontal gyrus, posterior frontal and anterior parietal lobes. Cortical-based encephalomalacia is also noted at the left lingula. Volume loss at the right cerebral peduncle, secondary to Wallerian degeneration. Chronic lacunar infarct at the left caudate head . No masses, hemorrhage or acute vascular insults. Suprasellar region: No abnormalities. Craniocervical junction: No abnormalities. Patent foramen magnum. No Chiari one malformation. Vessels: Normal flow-voids in the arteries and sinuses. IMPRESSION: 1. No acute abnormalities 2. Again seen right MCA and SMELTER LINER territories chronic infarcts with residual encephalomalacia. 3. Mild chronic microvascular ischemic changes of the white matter and diffuse volume loss. Signed by: DR Kirill Herr M.D. on 02/23/2019 1:29 PM
--- NOTE | 2019-02-23 13:45 | NUR ---
Visit made by the Spiritual Care Department Pastoral Visitor, Dominga Donato. Pt sleeping soundly and no family present. Pastoral Visitor left a card describing availability of slitter and rewinder machine operator and instructions on how to contact a slitter and rewinder machine operator. NADEEM MCKEON Fire [employer] Spiritual Care Department O: [phone] Pager: [phone] ([phone] number calling from)
--- NOTE | 2019-02-23 14:10 | NUR ---
SPOKE TO MARILYN, PATIENT'S DAUGHTER, INFORMED HER THAT HER FATHER HAS BEEN MOVED TO ROOM 201 ON [address]ICAL UN[address] AND THAT JOAQUIM IS THE NURSE UNTIL 7 PM.
--- NOTE | 2019-02-23 16:35 | NUR ---
PATIENT HAS MIDLINE PLACED, SPOKE TO MERCEDES BURNS NP, SHE STATED THAT MIDLINE CAN BE KEPT IN PLACE OF PICC LONG PATIENT CAN HAVE BLOOD DRAWN FROM IT.
[2019-02-23] MEDS: ATORVASTATIN 20 MG TAB PO SCH (20:57)
[2019-02-23] MEDS: CLOPIDOGREL BISULFATE 75 MG TAB PO SCH (20:57)
[2019-02-23] MEDS: MELATONIN 5 MG TABLET PO SCH (20:57)
[2019-02-23] MEDS ORDERED: CEFTRIAXONE SOD 1 GM/NS 50 ML 50 ML IV SCH (21:00)
[2019-02-23] MEDS ORDERED: MELATONIN 3 MG TAB PO SCH (21:00)
[2019-02-23] MEDS ORDERED: NYSTATIN 100,000 UNITS/GM CRM 30GM TUBE TOP SCH (21:00)
[2019-02-24] VITALS (7 sets, daily range): BP systolic 111–149; BP diastolic 60–80
[2019-02-24] MEDS ORDERED: ACETAMINOPHEN 325 MG TAB PO PRN (01:00)
--- NOTE | 2019-02-24 01:00 | NUR ---
nuclear reactor technician reported patient having 12 consecutive V Tachs. Followed up with patient and states she is having right upper quadrant pain 7/10. Abdomen feels firm and is tender to touch. Notified DOG HANDLER covering for Dr. Hart, orders received and placed.
[2019-02-24] MEDS: DEXTROSE 5%/0.45% SOD CHL 1,000 ML IV SCH (03:30)
[2019-02-24 05:24] LABS: BASOPHILS % 0.2 % (0.0-1.0); EOSINOPHILS # (AUTO) 0.6 (0.0-0.4); EOSINOPHILS % 4.5 % (0.0-6.0); HEMOGLOBIN 11.7 g/dL (12.0-16.0); LYMPHOCYTES # (AUTO) 1.7 (1.0-3.2); LYMPHOCYTES % 13.3 % (18.0-39.1); MEAN CORPUSCULAR HEMOGLOBIN 27.6 pg (28-32); MEAN CORPUSCULAR HGB CONC 30.8 g/dL (31-35); MEAN CORPUSCULAR VOLUME 89.6 fL (81-99); MONOCYTES # (AUTO) 0.8 (0.2-0.8); MONOCYTES % 6.3 % (4.4-11.3); NEUTROPHILS # (AUTO) 9.8 (2.1-6.9); NEUTROPHILS % 75.4 % (38.7-80.0); PLATELET COUNT 304 x10e3/uL (140-360); RED BLOOD COUNT 4.24 x10e6/uL (3.6-5.1); RED CELL DISTRIBUTION WIDTH 14.1 % (11.7-14.4)
[2019-02-24 05:38] LABS: ANION GAP 11.8 mmol/L (8-16); BLOOD UREA NITROGEN 23 mg/dL (7-26); BUN/CREATININE RATIO 34 (6-25); CALCIUM 9.1 mg/dL (8.4-10.2); CARBON DIOXIDE 23 mmol/L (22-29); CHLORIDE 112 mmol/L (98-107); CREATININE, SERUM 0.67 mg/dL (0.57-1.11); EST GLOMERULAR FILTRATION RATE > 60 ML/MIN (60-); GLUCOSE 127 mg/dL (74-118); MAGNESIUM 1.7 MG/DL (1.3-2.1); SODIUM 144 mmol/L (136-145)
[2019-02-24 05:41] LABS: POTASSIUM 2.8 mmol/L (3.5-5.1)
--- NOTE | 2019-02-24 05:44 | NUR ---
Critical lab reported, TIME BROKER covering for Dr. Hart aware, new orders received and placed
[2019-02-24] MEDS ORDERED: POTASSIUM CHLORIDE 20 MEQ TAB CR PO STA (05:45)
--- NOTE | 2019-02-24 06:28 | Diagnostic Imaging Report ---
EXAM: ABDOMEN-1VIEW (KUB), DATE: 02/24/2019 12:59 AM INDICATION: Abdominal pain. COMPARISON: 07/04/2018. FINDINGS: LINES/TUBES: None BOWEL PATTERN: There is a very large volume of stool within the rectosigmoid. Moderate volume of stool within the remainder of the colon. SOFT TISSUES: Phleboliths in the left hemipelvis. Vascular calcifications. No mass effect. LUNG BASES: Not included BONES: No acute findings. IMPRESSION: Findings consistent with fecal impaction and constipation. Signed by: Dr. Kaleb Castro M.D. on 02/24/2019 6:24 AM
--- NOTE | 2019-02-24 07:20 | NUR ---
Walking rounds done. patient resting in bed in NAD. She is awake and alertx2. She is able to give name and . Bed in lowest position, bed alarm on, locked and call swan within reach.
--- NOTE | 2019-02-24 08:20 | NUR ---
gil Pascal NP making round. She spoke to grand daughter at length regarding POC. All questions answered at this time.
[2019-02-24] MEDS ORDERED: CITRATE OF MAGNESIA 300ML BOTTLE PO ONE (09:30)
[2019-02-24] MEDS ORDERED: BISACODYL 5 MG TAB EC PO ONE (09:30)
[2019-02-24] MEDS ORDERED: OLOPATADINE 5 ML BTL OP PRN (09:30)
[2019-02-24] MEDS ORDERED: NYSTATIN 100,000 UNITS/GM CRM 30GM TUBE TOP PRN (09:30)
[2019-02-24] MEDS: LISINOPRIL 20 MG TAB PO SCH (09:34)
[2019-02-24] MEDS: FAMOTIDINE 20 MG TAB PO SCH ×2 (09:34→17:30)
[2019-02-24] MEDS: ZINC OXIDE / BALSAM PERU 30 GM TUBE TOP SCH (09:55)
[2019-02-24] MEDS ORDERED: VANCOMYCIN 1GM/NS 250 ML 250 ML IV SCH (10:00)
[2019-02-24] MEDS ORDERED: POTASSIUM CHLORIDE 20MEQ/15ML UDC PO NR (10:00)
[2019-02-24] MEDS ORDERED: POTASSIUM CHLORIDE 20 MEQ TAB CR PO ONE (10:00)
[2019-02-24] MEDS ORDERED: DOCUSATE SODIUM 100 MG CAP PO SCH (10:00)
[2019-02-24] MEDS ORDERED: CITRATE OF MAGNESIA 300ML BOTTLE PO NR (10:30)
[2019-02-24] MEDS ORDERED: BISACODYL 5 MG TAB EC PO NR (10:30)
--- NOTE | 2019-02-24 10:30 | NUR ---
Soap halle enema given. Patient tolerated well.
[2019-02-24] MEDS: FUROSEMIDE INJ 10 MG/ML 2 ML VIAL IV SCH (10:52)
--- NOTE | 2019-02-24 12:03 | Diagnostic Imaging Report ---
Exam: Left ankle radiographs-3 views History: Follow-up osteomyelitis. Comparison: None. Findings: There is diffuse osteopenia, which limits evaluation. There is a posttraumatic deformity of the distal fibula. There has been fixation of the medial malleolus with 2 partially threaded screws and of the lateral malleolus with a screw. Hardware appears intact. No evidence of acute fracture or malalignment. No evidence of destructive bony lesion. There is a plantar calcaneal spur. Impression: Diffuse osteopenia, which limits evaluation. No specific radiographic evidence of osteomyelitis, although MRI would be more sensitive for evaluation. Posttraumatic changes of the ankle as above with intact fixation hardware. No evidence of acute fracture or malalignment. Signed by: Dr. Leonardo Edmond MD on 02/24/2019 11:59 AM
[2019-02-24] MEDS: PIPER-TAZ 3.375 GM 50 ML IV SCH ×2 (12:52→17:30)
--- NOTE | 2019-02-24 15:30 | NUR ---
Soap Jalil enema given as ordered. Patient tolerated well. Large liquid and small hard particles removed.
--- NOTE | 2019-02-24 15:57 | Consultation ---
DATE OF CONSULTATION: 02/24/2019 REASON FOR CONSULTATION: Possible vegetation on echo. CONSULTING PHYSICIAN: Delores Pascal, nurse practitioner. HISTORY OF PRESENT ILLNESS: This is a 73-year-old female, resident of the [facility], who presented with altered mental status. According to the family members, they found her altered, not acting right, that she was brought in for further evaluation. She stated that last week she was trying to get out of the commode when she accidentally fell. She also complained of difficulty with urination and constipation. She answers simple questions. She has history of CVA in the past. On the telemetry today, she was found to be in slow AFib also. She denied any chest pain. She has multiple bruises on her upper extremities. BNP 266 and troponin was negative. PAST MEDICAL HISTORY: Hypertension, hyperlipidemia, diabetes, CVA, PVD, left-sided hemiparesis, GERD, and possible AFib. PAST SURGICAL HISTORY: Cholecystectomy, appendectomy, left ankle surgery, C-spine surgery x2, hysterectomy, and lower back surgery. FAMILY HISTORY: Noncontributory. SOCIAL HISTORY: She lives at a [facility]. MEDICATIONS: See med list. ALLERGIES: SHE HAS MULTIPLE ALLERGIES, SEE CHART. REVIEW OF SYSTEMS: Unable to obtain due to altered mental status. PHYSICAL EXAMINATION: VITAL SIGNS: Pulse 68, heart rate 149/60, respirations 16, oxygen saturation 97% on 2 L nasal cannula. GENERAL: She is awake, alert, and oriented x1, self. HEENT: Mucous membranes are moist. NECK: Supple. LUNGS: Bilateral clear to auscultation. CARDIOVASCULAR: Irregularly irregular. ABDOMEN: Soft. NEUROLOGICAL: She is able to follow simple commands and answer yes or no question. EXTREMITIES: With no edema. LABORATORY DATA: Sodium 144, potassium 2.8, chloride 112, CO2 of 23, BUN 23, creatinine 0.67, glucose 127. White blood cell 12.9, hemoglobin 11.7, hematocrit 38.0, platelets 304. IMPRESSION: 1. Atrial fibrillation. 2. Altered mental status. 3. Hypokalemia. 4. Urinary tract infection. 5. Hypertension. 6. Hyperlipidemia. 7. Acute systolic heart failure. 8. History of falls. PLAN: 1. We will get bilateral carotid Doppler to rule out any occlusion. 2. Check TSH. 3. Possibly QUINN to rule out any vegetation. Risk and procedure explained to the patient and granddaughter, who is the medical power of estate attorney and they all agreed. 4. Potassium has been replaced. 5. We will put her on Lovenox for now and possible p.o. anticoagulation if family agreed before discharge. Further cardiac workup pending clinical course. Thank you for this consultation. Dictated by Carlos Rivera, MARLEN MD KATIE Melendez/FLETCHER /[id number]
[2019-02-24] MEDS: DOCUSATE SODIUM LIQD 100 MG/10 ML UDC NG SCH (17:30)
--- NOTE | 2019-02-24 19:03 | NUR ---
PAST MEDICAL HISTORY: Hypertension, hyperlipidemia, diabetes, CVA, PVD, left-sided hemiparesis, GERD, and possible AFib. PAST SURGICAL HISTORY: Cholecystectomy, appendectomy, left ankle surgery, C-spine surgery x2, hysterectomy, and lower back surgery. FAMILY HISTORY: Noncontributory. SOCIAL HISTORY: [facility]. MEDICATIONS: See med list. ALLERGIES: SHE HAS MULTIPLE ALLERGIES, SEE CHART. REVIEW OF SYSTEMS: Unable to obtain due to altered mental status. PHYSICAL EXAMINATION: VITAL SIGNS: Pulse 68, heart rate 149/60, respirations 16, oxygen saturation 97% on 2 L nasal cannula. GENERAL: She is awake, alert, and oriented x1, self. HEENT: Mucous membranes are moist. NECK: Supple. LUNGS: Bilateral clear to auscultation. CARDIOVASCULAR: Irregularly irregular. ABDOMEN: Soft. NEUROLOGICAL: She is able to follow simple commands and answer yes or no question. EXTREMITIES: With no edema. LABORATORY DATA: Sodium 144, potassium 2.8, chloride 112, CO2 of 23, BUN 23, creatinine 0.67, glucose 127. White blood cell 12.9, hemoglobin 11.7, hematocrit 38.0, platelets dictated [id number]
--- NOTE | 2019-02-24 19:08 | NUR ---
Report received and walking rounds complete. Pt resting in bed and in no apparent distress. Pt seems to be a bit confused. Pt on room air and tele. All safety measures ensure, bed alarm on, and call swan near. Pt encouraged to use call swan for assistance. Will monitor pt.
[2019-02-24] MEDS: MELATONIN 5 MG TABLET PO SCH (21:00)
--- NOTE | 2019-02-24 21:20 | NUR ---
Spoke with pts granddaughter who had questions regarding pts care and state. She was concerned about pt being somewhat confused. Explained to her that pt could be a medication she was given or that she may be a sundowner. Informed granddaughter that I would monitor the pt. Granddaughter asked when pts procedure would be and to call her to let her know what time it will be at. Informed her that myself or day shift nurse will call to inform her.
[2019-02-24] MEDS: CEFTRIAXONE SOD 1 GM/NS 50 ML 50 ML IV SCH (21:35)
[2019-02-24] MEDS: CLOPIDOGREL BISULFATE 75 MG TAB PO SCH (21:35)
[2019-02-24] MEDS: ATORVASTATIN 20 MG TAB PO SCH (21:35)
--- NOTE | 2019-02-24 21:40 | NUR ---
Pt tolerated oral pills well with no complaints. Pt seems to be a more alert and non confused. Pt was able to answer questions and states she isn't in any pain.
--- NOTE | 2019-02-24 22:24 | NUR ---
Pt received full bed bath and tolerated well.
[2019-02-25] VITALS (8 sets, daily range): BP systolic 105–147; BP diastolic 58–94
--- NOTE | 2019-02-25 00:20 | NUR ---
Pt has had a few BM smears but no full BM. Pt states she is "passing a lot of gas."
--- NOTE | 2019-02-25 01:38 | History and Physical ---
CHIEF COMPLAINT: Abnormal echocardiogram concerned about endocarditis. Thank you so much for seeing this patient. HISTORY OF PRESENT ILLNESS: This patient is a 73-year-old white female from a long term, who has history of dementia, history of CVA, peripheral vascular disease, left-sided hemiparesis, GERD, atrial fibrillation, hypertension, hyperlipidemia, and diabetes mellitus. The patient comes to [facility] from a long term with altered mental status. The patient who is currently confused, does not seem to be in acute distress, have no complaints. Apparently, she was in [place] few weeks ago where she had some wound to her ankle, which was treated. She has Staph aureus growing in that wound and then she was discharged to skilled care facility. Now, she is coming with altered mental status apparently, this concern about endocarditis. An echocardiogram was done which shows there was a possible vegetation versus calcification. Dr. Jones was consulted. We have done an echocardiogram back in December, apparently was normal, but he is going to review both and call me with the result to discuss the case with him. The patient does not really provide any meaningful information, but case was discussed with her nurse. Reviewed her lab data and chart from now and previous, also medication list. PAST MEDICAL HISTORY: Hypertension, hyperlipidemia, diabetes mellitus, CVA, peripheral vascular disease, left-sided hemiparesis, GERD, and possible atrial fibrillation. PAST SURGICAL HISTORY: Cholecystectomy, appendectomy, left ankle surgery, C-spine surgery, hysterectomy, lower back surgery. ALLERGIES: NKA. SOCIAL HISTORY: There is no smoking, drug abuse, or alcohol abuse. She is from long term. FAMILY HISTORY: Otherwise noncontributory. REVIEW OF SYSTEMS: The patient was confused, but she denies any headache, visual change or hearing changes she is stable except she is confused. There is no fever, chills, diarrhea, cough, shortness of breath, any swelling in her joint etc. PHYSICAL EXAMINATION: GENERAL: She is currently alert, oriented, does not seem to be in acute distress. VITAL SIGNS: Stable, currently afebrile. HEENT: She is not icteric. NECK: Supple. CHEST: Clear bilateral. HEART: S1, S2. No S3, S4, or murmur. ABDOMEN: Soft. Bowel sounds present. No tenderness. EXTREMITIES: No edema. SKIN: There is no rash. LABORATORY DATA: Reviewed. Blood cultures are negative 24 hours. Her urine cultures on February 22 shows gram-negative rods. Her white count is 12.96, hemoglobin 11, hematocrit 38, her platelets 304. The trend reviewed. Sodium 144, potassium 2.8 and creatinine 0.67. MEDICATIONS: She is on Colace, Pepcid, Lasix and Prinivil. She is on vancomycin and Zosyn. IMPRESSION: Altered mental status, this could be urinary tract infection, pyelonephritis abnormal echocardiogram. Doubt endocarditis. There is no fever. No chills. Blood cultures are negative. We will get a sedimentation rate, C-reactive protein. I would recommend to hold off vancomycin and Zosyn. Urinary tract infection as mentioned above. We will put on Rocephin 1 g q.24, follow. Atrial fibrillation. We will discuss with Dr. Jones after he reviewed the echocardiogram. Other medical problems as above. We will follow with you. MD CRISTHIAN Gonsalez/FLETCHER /[id number]
[2019-02-25 03:46] LABS: BASOPHILS % 0.1 % (0.0-1.0); EOSINOPHILS # (AUTO) 0.2 (0.0-0.4); EOSINOPHILS % 1.3 % (0.0-6.0); HEMOGLOBIN 12.2 g/dL (12.0-16.0); LYMPHOCYTES # (AUTO) 1.9 (1.0-3.2); LYMPHOCYTES % 13.8 % (18.0-39.1); MEAN CORPUSCULAR HEMOGLOBIN 27.9 pg (28-32); MEAN CORPUSCULAR HGB CONC 31.3 g/dL (31-35); MONOCYTES # (AUTO) 0.9 (0.2-0.8); MONOCYTES % 6.4 % (4.4-11.3); NEUTROPHILS # (AUTO) 10.6 (2.1-6.9); NEUTROPHILS % 77.7 % (38.7-80.0); PLATELET COUNT 317 x10e3/uL (140-360); RED BLOOD COUNT 4.38 x10e6/uL (3.6-5.1); RED CELL DISTRIBUTION WIDTH 14.3 % (11.7-14.4)
[2019-02-25 03:58] LABS: ANION GAP 12.5 mmol/L (8-16); CALCIUM 9.6 mg/dL (8.4-10.2); CARBON DIOXIDE 23 mmol/L (22-29); CHLORIDE 111 mmol/L (98-107); CREATININE, SERUM 0.65 mg/dL (0.57-1.11); EST GLOMERULAR FILTRATION RATE > 60 ML/MIN (60-); GLUCOSE 111 mg/dL (74-118); MAGNESIUM 2.2 MG/DL (1.3-2.1); SODIUM 143 mmol/L (136-145)
[2019-02-25 04:02] LABS: POTASSIUM 3.5 mmol/L (3.5-5.1)
[2019-02-25 04:08] LABS: BLOOD UREA NITROGEN 19 mg/dL (7-26); BUN/CREATININE RATIO 29 (6-25)
--- NOTE | 2019-02-25 07:23 | NUR ---
report given and walking rounds complete.
[2019-02-25] MEDS: FAMOTIDINE 20 MG TAB PO SCH ×2 (07:30→17:42)
[2019-02-25] MEDS ORDERED: ASPIRIN 325 MG TAB PO SCH (09:00)
[2019-02-25] MEDS: DOCUSATE SODIUM LIQD 100 MG/10 ML UDC NG SCH ×2 (09:00→17:00)
[2019-02-25] MEDS: ZINC OXIDE / BALSAM PERU 30 GM TUBE TOP SCH (09:00)
[2019-02-25] MEDS: FUROSEMIDE INJ 10 MG/ML 2 ML VIAL IV SCH (09:06)
[2019-02-25] MEDS ORDERED: BISACODYL 10 MG SUPP PR NR (11:30)
--- NOTE | 2019-02-25 12:22 | NUR ---
Patient off unit to slab lifting supervisor for QUINN.
[2019-02-25] MEDS ORDERED: SODIUM CHLORIDE 0.9% 1000ML 1,000 ML ONE (13:35)
[2019-02-25] MEDS ORDERED: BENZOCAINE 20% SPR 60 ML CAN ONE (13:35)
--- NOTE | 2019-02-25 13:49 | NUR ---
1330 - pt taken to endo 3 from OR waiting. right midline presents healthy and intact. MD notified 1345 - MD arrival, time out performed, Anesthesia present- Mohit gann with Echo present. Oral cavity receiving hurricane spray. 1350 - Bite block placed, oral cavity sprayed 2nd time 1352 - QUINN probe inserted atraumatically by Dr Jones 1359 - bubble study 1400 - QUINN probe removed
--- NOTE | 2019-02-25 14:04 | NUR ---
pt taken to phase 1 per librado
--- NOTE | 2019-02-25 15:02 | NUR ---
Patient arrived from PACU, fully awake. Vital signs are stable. Call swan within reach.
[2019-02-25] MEDS ORDERED: BISACODYL 10 MG SUPP PR ONE (16:30)
[2019-02-25] MEDS ORDERED: ENOXAPARIN SOD INJ 40 MG/0.4 ML SYR SC SCH (17:00)
[2019-02-25] MEDS: AMIODARONE HCL 200 MG TAB PO SCH (17:42)
[2019-02-25] MEDS: LISINOPRIL 20 MG TAB PO SCH (17:42)
[2019-02-25] MEDS ORDERED: PROPOFOL IV EMULSION 10 MG/ML 20 ML VIAL ONE (19:19)
[2019-02-25] MEDS ORDERED: LIDOCAINE HCL 2% LOCAL INJ 5 ML SDV VIAL INJ ONE (19:19)
[2019-02-25] MEDS: CLOPIDOGREL BISULFATE 75 MG TAB PO SCH (20:05)
[2019-02-25] MEDS: ATORVASTATIN 20 MG TAB PO SCH (20:05)
[2019-02-25] MEDS ORDERED: SODIUM CHLORIDE 0.9% 250ML 250 ML ONE (21:23)
[2019-02-25] MEDS: CEFTRIAXONE SOD 1 GM/NS 50 ML 50 ML IV SCH (21:41)
[2019-02-25] MEDS: MELATONIN 5 MG TABLET PO SCH (21:41)
[2019-02-26] VITALS (7 sets, daily range): BP systolic 95–173; BP diastolic 64–90
[2019-02-26] MEDS: HYDRALAZINE HCL 20 MG/ML VIAL IV PRN (06:11)
--- NOTE | 2019-02-26 08:45 | NUR ---
Th pt. is in bed awake,alert and oriented times 3. She reports feeling like she may be emptying her bowels but no action at this time. The family members has provided linzess and will give to the pt. as she is yet to have a bm this adm. Once bowels have acted the pt. can go back to the place of residence.
[2019-02-26] MEDS: FAMOTIDINE 20 MG TAB PO SCH ×2 (08:59→17:24)
[2019-02-26] MEDS: APIXAB 2.5 MG TABLET PO SCH ×2 (08:59→17:24)
[2019-02-26] MEDS: DOCUSATE SODIUM LIQD 100 MG/10 ML UDC NG SCH ×2 (08:59→17:24)
[2019-02-26] MEDS: FUROSEMIDE INJ 10 MG/ML 2 ML VIAL IV SCH (08:59)
[2019-02-26] MEDS: AMIODARONE HCL 200 MG TAB PO SCH (08:59)
[2019-02-26] MEDS: LISINOPRIL 20 MG TAB PO SCH (09:00)
[2019-02-26] MEDS: ZINC OXIDE / BALSAM PERU 30 GM TUBE TOP SCH (09:01)
[2019-02-26] MEDS ORDERED: PATANOL5 ML OP (09:07)
[2019-02-26] MEDS ORDERED: AMIODARONE HCL200 MG PO (09:07)
[2019-02-26] MEDS ORDERED: NYSTATIN15 GM TOP (09:07)
[2019-02-26] MEDS ORDERED: Apixab PO (09:07)
[2019-02-26] MEDS ORDERED: CEFTIN PO (09:07)
[2019-02-26] MEDS ORDERED: ONDANSETRON HCL 4 MG ORAL DISINTEGRATING TAB PO PRN (09:30)
[2019-02-26] MEDS: LINZESS 72 MCG PO SCH (10:13)
--- NOTE | 2019-02-26 11:38 | Transesophageal Echocardiogram ---
DATE OF STUDY: 02/24/2019 08:46:00 QUINN COMPLETE INDICATION: Rule out vegetation. DESCRIPTION OF PROCEDURE: After informed consent, the patient was brought to the QUINN lab. Her throat was sprayed with Cetacaine spray. The patient was anesthetized by the anesthesiologist. Transesophageal probe was passed without any difficulty. Images were obtained in the usual fashion. The patient tolerated the procedure without any complications. REPORT: 1. Left ventricle; normal size and systolic function. Overall estimated ejection fraction of 55% to 60%. 2. Left atrium; normal size. No spontaneous echo contrast or thrombus seen in the left atrium or left atrial appendage. 3. Right atrium; is of normal size. 4. Right ventricle; normal size. 5. Mitral valve; thickened with adequate valve excursion. There is mitral annular calcification noted. No obvious vegetations are noted on the mitral valve leaflets. Veqld-dd-sttk mitral regurgitation is noted. 6. Tricuspid valve; structurally normal with adequate valve excursion. No vegetations seen on tricuspid valve leaflets. Trace tricuspid regurgitation is noted. 7. Aortic valve; is mildly thickened with adequate valve excursion. Lumd-vy-whjirxqf aortic regurgitation is noted. No vegetation is seen on the aortic valve leaflets. 8. Pulmonic valve; in the view seen, appears to be normal with adequate valve excursion. No obvious vegetations are noted in the pulmonic valve leaflets. 9. Aorta; mild atherosclerotic plaquing of the aorta is noted. 10. There is trace pericardial effusion is noted. 11. No intracardiac thrombi is noted. 12. Suggestion of okbse-hy-qzjv shunt across the interatrial septum on saline contrast injection. 13. The aortic root appears to be dilated. CONCLUSIONS: 1. Left ventricle normal size and systolic function. 2. The overall estimated ejection fraction is 55% to 60%. 3. Qocit-nr-gwfo mitral regurgitation. Trace tricuspid regurgitation. Vkoa-nx-wmegrvtf aortic regurgitation is noted. 4. Aortic root appears to be dilated. 5. Mild atherosclerotic plaquing of the aorta is noted. 6. Trace pericardial effusion is noted. 7. The suggestion of voefa-aw-tdqr shunt across the interatrial septum could represent PFO. 8. No intracardiac thrombi or vegetations noted. Duane Jones MD SC/MODL /[id number]
--- NOTE | 2019-02-26 13:32 | NUR ---
FILLED OUT RTF TO [facility] AT [facility] FOR COMPLETION OF TRANSFER
--- NOTE | 2019-02-26 13:32 | NUR ---
FAXED CLINICALS TO [facility] TO RETURN TO FACILITY. WAITING ON AUTH.
--- NOTE | 2019-02-26 14:09 | NUR ---
CM placed call to pt's granddaughter Marilou Erazo, per pt's request. Informed her that pt has a bed at [facility], anticipate transfer tomorrow. Explained IMM letter to Ms. Erazo. She verbalized understanding. Signed copy placed in chart. Informed her that copy will be left at bedside in transition of care folder for her.
--- NOTE | 2019-02-26 14:59 | NUR ---
PT GOING TO ROOM [address] UNDER [facility] [address] [place]AD[place]
--- NOTE | 2019-02-26 19:05 | NUR ---
Patient visited in room during nursing rounds. Patient alert and oriented 2-3. Patient extremely weak and is on bedrest at this time. Pt diapered and has stage 2 to sacrum (covered with Allevyn dressing). Patient resting with HOB elevated 60 degrees per pt preference. Patient informed she has scheduled labs in the morning but patient stated she refused to be drawn in the morning for labs. Will relay information to the imaging administrator in the AM. Call swan within reach.
[2019-02-26] MEDS: CLOPIDOGREL BISULFATE 75 MG TAB PO SCH (21:20)
[2019-02-26] MEDS: ATORVASTATIN 20 MG TAB PO SCH (21:20)
[2019-02-26] MEDS: MELATONIN 5 MG TABLET PO SCH (21:20)
[2019-02-26] MEDS: CEFTRIAXONE SOD 1 GM/NS 50 ML 50 ML IV SCH (21:20)
[2019-02-27] VITALS: BP 133/58
[2019-02-27 04:00] VITALS: BP 126/71
--- NOTE | 2019-02-27 04:00 | NUR ---
Patient agreed for labs to be drawn this morning. Professional Model on the unit to draw blood.
[2019-02-27 04:57] LABS: BASOPHILS % 0.2 % (0.0-1.0); EOSINOPHILS # (AUTO) 0.1 (0.0-0.4); HEMATOCRIT 38.7 % (34.2-44.1); HEMOGLOBIN 11.9 g/dL (12.0-16.0); LYMPHOCYTES # (AUTO) 1.4 (1.0-3.2); LYMPHOCYTES % 11.7 % (18.0-39.1); MEAN CORPUSCULAR HEMOGLOBIN 28.1 pg (28-32); MEAN CORPUSCULAR HGB CONC 30.7 g/dL (31-35); MEAN CORPUSCULAR VOLUME 91.5 fL (81-99); MONOCYTES # (AUTO) 0.7 (0.2-0.8); MONOCYTES % 5.5 % (4.4-11.3); NEUTROPHILS # (AUTO) 9.7 (2.1-6.9); PLATELET COUNT 289 x10e3/uL (140-360); RED BLOOD COUNT 4.23 x10e6/uL (3.6-5.1); RED CELL DISTRIBUTION WIDTH 14.4 % (11.7-14.4)
[2019-02-27 05:14] LABS: ANION GAP 14.6 mmol/L (8-16); BLOOD UREA NITROGEN 17 mg/dL (7-26); BUN/CREATININE RATIO 27 (6-25); CALCIUM 9.4 mg/dL (8.4-10.2); CARBON DIOXIDE 23 mmol/L (22-29); CHLORIDE 112 mmol/L (98-107); CREATININE, SERUM 0.64 mg/dL (0.57-1.11); EST GLOMERULAR FILTRATION RATE > 60 ML/MIN (60-); GLUCOSE 112 mg/dL (74-118); POTASSIUM 3.6 mmol/L (3.5-5.1); SODIUM 146 mmol/L (136-145)
[2019-02-27 07:34] VITALS: BP 91/54
[2019-02-27] MEDS: LISINOPRIL 20 MG TAB PO SCH (09:00)
[2019-02-27] MEDS: LINZESS 72 MCG PO SCH (09:20)
[2019-02-27] MEDS: FAMOTIDINE 20 MG TAB PO SCH (09:20)
[2019-02-27] MEDS: FUROSEMIDE INJ 10 MG/ML 2 ML VIAL IV SCH (09:20)
[2019-02-27] MEDS: DOCUSATE SODIUM LIQD 100 MG/10 ML UDC NG SCH (09:20)
[2019-02-27] MEDS: AMIODARONE HCL 200 MG TAB PO SCH (09:20)
[2019-02-27] MEDS: APIXAB 2.5 MG TABLET PO SCH (09:20)
[2019-02-27] MEDS: ZINC OXIDE / BALSAM PERU 30 GM TUBE TOP SCH (09:29)
[2019-02-27 09:41] VITALS: BP 91/54
[2019-02-27 11:28] VITALS: BP 101/68
--- NOTE | 2019-02-28 05:47 | Discharge Summary ---
ADMISSION DIAGNOSES: 1. AMS. 2. Urinary tract infection, present on admission. 3. Hypertension. 4. Hyperlipidemia. 5. Insomnia. 6. Weakness with history of cerebrovascular accident. 7. Hypernatremia. 8. Elevated BNP, . DISCHARGE DIAGNOSES: 1. AMS. 2. Urinary tract infection, present on admission. 3. Hypertension. 4. Hyperlipidemia. 5. Insomnia. 6. Weakness with history of cerebrovascular accident. 7. Hypernatremia. 8. Elevated BNP, . 9. Rule out cerebrovascular accident/transient ischemic attack/acute systolic congestive heart failure with an EF of 40% to 45% with calcification on mitral valve. HISTORY: The patient has a history of hypertension, hyperlipidemia, insomnia, CVA with left deficit, GERD, and OM, left foot. She finished antibiotics on 02/12/2019 at [facility]. SURGICAL HISTORY: 1. Cholecystectomy. 2. Appendectomy. 3. Left ankle surgery. 4. Lower back surgery. 5. Hysterectomy. 6. C-spine surgery x2. FAMILY HISTORY: The patient's paternal aunt had diabetes. The patient's dad had cancer. The patient's dad also had a stroke. SOCIAL HISTORY: Noncontributory. HOSPITAL COURSE: 73-year-old female from [facility], complains of a fall a couple days ago while trying to get on the bedside commode. She denies dizziness. She also complains of dysuria, but it is unaware of hematuria as she is diapered. She also denies fever, chills, and increased urinary frequency. She is a poor historian and changed her story multiple times during the assessment. Initially, no family was at bedside. The next day I talked to the granddaughter, who said that patient has become increasingly confused and so she was worried about the UTI or possible stroke. On admission, CT of the brain was negative, MRI of the brain was negative. Preliminary echo showed an EF of 40% to 45% with evidence of pericardial effusion and valvular abnormality, which showed a calcification or vegetation on the mitral valve, incomplete close of the aortic valve and severe aortic insufficiency. At that point, Cardiology was consulted, who did a QUINN. Carotid Doppler also had evidence of carotid disease without significant stenosis. According to Cardiology, there is no vegetation, just calcification on the heart valve. The patient was also found to be in atrial fibrillation during hospitalization and was started on amiodarone daily and Eliquis 2.5 b.i.d. The patient will discharge back to [facility] for prolonged physical therapy before returning home with family. The patient and granddaughter understand discharge instructions and agrees to plan. The patient will discharge back with 4 more days of Ceftin for the E coli found in the urine. Vital signs stable, patient is afebrile. Dictated by Delores Pascal NP MD JAY Garrison/MODL /[id number]
== END 2019-02-27 11:36 | DRG 689 ==
LOC: ER 20:05 → ERHOLD 02-23 01:17 → IMCU 02-23 04:44 → OBSVTOIN 02-24 10:20 → MED/SURG2 02-25 20:56
PROVIDERS: ADMIT Internal Medicine; ATTEND Internal Medicine
PROC: 02HV33Z Insertion of Infusion Device into Superior Vena Cava, Percutaneous Approach (ICD-10-PCS; principal; 2019-02-23)
DX: N10 Acute pyelonephritis (principal); I50.21 Acute systolic (congestive) heart failure; E87.0 Hyperosmolality and hypernatremia; I48.91 Unspecified atrial fibrillation; E78.5 Hyperlipidemia, unspecified; G47.00 Insomnia, unspecified; L89.312 Pressure ulcer of right buttock, stage 2; Z91.81 History of falling; I69.398 Other sequelae of cerebral infarction; E87.6 Hypokalemia; I11.0 Hypertensive heart disease with heart failure; I05.8 Other rheumatic mitral valve diseases; F03.90 Unspecified dementia, unspecified severity, without behavioral disturbance, psychotic disturbance, mood disturbance, and anxiety; Z86.73 Personal history of transient ischemic attack (TIA), and cerebral infarction without residual deficits
CPT/HCPCS: 36415; 70450; 70551; 71045; 74018; 80048; 80053; 80061; 81001; 82140; 82550; 82553; 82948; 83036; 83605; 83690; 83735; 83880; 84439; 84443; 84484; 85025; 87040; 87086; 87186; 93306; 93307; 93312; 93325; 93880; 96361; 97139; 99284; G0378; J0360; J0696; J1650; J1940; J2001; J2543; J3370; J7030; J7050